=== PATIENT | female | born 1975 | race African-American/Black ===

== ENCOUNTER 2017-03-10 21:01 | Emergency (ER) | payer OTHER ==
[~2017-03-10] VITALS: Ht 157.5 cm; Wt 80.0 kg
[2017-03-10] MEDS ORDERED: IOHEXOL 350 MG/ML 10 ML VIAL (for RAD DIAG) IVCONTRAST ONE (21:02)
[2017-03-10] MEDS ORDERED: SODIUM CHLOR 0.9% 1000 ML INJ 1,000 ML IV SCH (21:13)
[2017-03-10 21:15] VITALS: O2SAT 100
[2017-03-10] MEDS ORDERED: DIPHTH/TETANUS/ACEL PERTUSSIS (BOOSTER) 0.5 ML VIAL/PFS IM ONE (21:15)
[2017-03-10] MEDS ORDERED: MORPHINE SULFATE 4 MG/ML INJ IV PUSH ONE (21:15)
[2017-03-10] MEDS ORDERED: SODIUM CHLORIDE 0.9% FLUSH 10 ML FLUSH IVF PRN (21:15)
[2017-03-10] MEDS ORDERED: ONDANSETRON HCL 4 MG/2 ML VIAL IV PUSH ONE (21:15)
[2017-03-10 21:20] VITALS: BP 169/92; PULSE 87; RESP 16; TEMP 98.9; O2SAT 100
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
[2017-03-10 21:29] VITALS: O2SAT 98
[2017-03-10] MEDS ORDERED: ceFAZolin 2 GM PREMIX 50 ML IV ONE (21:30)
[2017-03-10 21:42] LABS: BASOPHIL # 0.1 TH/MM3 (0-0.2); BASOPHIL % 0.6 % (0.0-2.0); EOSINOPHIL # 0.3 TH/MM3 (0-0.4); EOSINOPHIL % 2.9 % (0.0-4.0); HEMATOCRIT 35.6 % (35.0-46.0); HEMO FLAGS DIFF FINAL; LYMPH % 29.5 % (9.0-44.0); LYMPHOCYTE # 3.4 TH/MM3 (1.0-4.8); MEAN CELL VOLUME 86.3 FL (80.0-100.0); MEAN CORPUSCULAR HGB CONC 32.4 % (32.0-36.0); MONO % 6.1 % (0.0-8.0); NEUT % 60.9 % (16.0-70.0); PLATELET COUNT 375 TH/MM3 (150-450); RED BLOOD COUNT 4.13 MIL/MM3 (4.00-5.30); RED CELL DISTRIBUTION WIDTH 14.5 % (11.6-17.2); WHITE BLOOD COUNT 11.4 TH/MM3 (4.0-11.0)
[2017-03-10 21:55] LABS: BICARBONATE 21.9 MEQ/L (21.0-32.0)
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
[2017-03-10 22:02] LABS: POTASSIUM 2.9 MEQ/L (3.5-5.1)
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
[2017-03-10 22:24] LABS: CALCIUM-PROTEIN CORRECTED 7.4 MG/DL (8.5-10.1)
[2017-03-10 22:29] LABS: APTT (PATIENT) 24.8 SEC (24.3-30.1); INTERNATIONAL NORMALIZED RATIO 0.9 RATIO; PROTHROMBIN TIME - PATIENT 10.1 SEC (9.8-11.6)
[2017-03-10] MEDS ORDERED: POTASSIUM CHLORIDE 20 MEQ CONTROLLED RELEASE TAB PO ONE (22:30)
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
[2017-03-10] MEDS ORDERED: CALCTAB19 PO (22:42)
[2017-03-10] MEDS ORDERED: POTA1TAB4 PO (22:42)
[2017-03-10] MEDS ORDERED: CALCIUM GLUCONATE INJ 1 GM in DEXTROSE 5% IN WATER 100ML INJ 100 ML IV ONE ×2 (22:45)
[2017-03-10] MEDS ORDERED: CYCL5TAB PO (23:03)
[2017-03-10] MEDS ORDERED: EC-N500T PO (23:03)
[2017-03-10 23:34] VITALS: BP 180/79; PULSE 75; PULSE 82; RESP 16; O2SAT 95
== END 2017-03-11 00:42 | disposition home or self-care (01) ==
LOC: NEPC 21:01
DX: S09.90XA Unspecified injury of head, initial encounter (principal); E83.51 Hypocalcemia; E87.6 Hypokalemia; R10.2 Pelvic and perineal pain; V89.2XXA Person injured in unspecified motor-vehicle accident, traffic, initial encounter
CPT/HCPCS: 70450; 71010; 71260; 72125; 72128; 72131; 73502; 74177; 80048; 80307; 84155; 84703; 85025; 85384; 85610; 85730; 86850; 86900; 86901; 96365; 96367; 99285; J0610; J0690; J7030; Q9967